=== PATIENT | male | born 1960 | race Caucasian/White ===

== ENCOUNTER 2021-02-03 11:59 | Emergency (ER) | payer OTHER, SELFPAY ==
[2021-02-03 12:05] VITALS: BP 139/81; PULSE 74; RESP 12; TEMP 36.7; O2SAT 99
--- NOTE | 2021-02-03 12:08 | DI.RAD.S_ITS ---
PROCEDURE: XR CLAVICLE RT INDICATIONS: fall w/ pain TECHNIQUE: 2 views of the clavicle were acquired. COMPARISON: [facility], CR, XR SHOULDER RT MIN 2V, 02/03/2021, 12:11. FINDINGS: Bones: There is a chronic appearing fracture seen involving the distal clavicle. No acute appearing fractures or dislocations. No suspicious bony lesions. Soft tissues: No suspicious soft tissue calcifications. The visualized lung demonstrates an unremarkable appearance. IMPRESSION: No definite, acute fractures are seen. There is a chronic appearing fracture of the right distal clavicle. Dictated by: Lamont Duarte M.D. on 02/03/2021 at 11:28 Approved by: Lamont Duarte M.D. on 02/03/2021 at 11:29
--- NOTE | 2021-02-03 12:08 | DI.RAD.S_ITS ---
PROCEDURE: XR SHOULDER RT MIN 2V INDICATIONS: fall w/ pain TECHNIQUE: 3 views of the shoulder were acquired. COMPARISON: [facility], CR, XR CLAVICLE RT, 02/03/2021, 12:11. FINDINGS: Bones: There is a remote appearing fracture of the distal clavicle, with associated degenerative changes. No acute appearing fractures or dislocations. No suspicious bony lesions. Visualized ribs appear intact. Soft tissues: No suspicious soft tissue calcifications. The visualized lung demonstrates an unremarkable appearance. IMPRESSION: No definite, acute fracture can be seen. There is a remote appearing fracture of the right distal clavicle. If there is point tenderness (or other clinical suspicion for a fracture not seen on these images) please consider a dedicated CT for further evaluation. Dictated by: Lamont Duarte M.D. on 02/03/2021 at 11:29 Approved by: Lamont Duarte M.D. on 02/03/2021 at 11:29
--- NOTE | 2021-02-03 16:53 | ED.UPPEXIN ---
HPI - Extremity Injury (Upper) <MIKHAIL Florez - Last Filed: 02/03/21 17:15> General Chief Complaint: Extremity Injury, Upper Stated Complaint: Dislocated or Broke Rt Shoulder, Fall Time Seen by Provider: 02/03/21 15:10 Source: patient Mode of arrival: Ambulatory Limitations: no limitations History of Present Illness HPI narrative: Mr. Monk is a 60-year-old male who presents to the ED for right clavicle and shoulder pain. He reports that he tripped on some sand and fell in the driveway on to his right shoulder. He was concerned about a clavicle fracture, he has mild pain with flexion and abduction. Patient denies any numbness or tingling. Patient denies hitting head or losing consciousness. He is able to move his shoulder normally with pain. Related Data Allergies Allergy/AdvReac Type Severity Reaction Status Date / Time No Known Drug Allergies Allergy Verified 02/03/21 12:08 Patient History <MIKHAIL Florez - Last Filed: 02/03/21 17:15> Social History Smoking Status: Current every day smoker Smoking Status: Current every day smoker alcohol intake frequency: 0-2 drinks per day Substance Use Type: does not use Exam <MIKHAIL Florez - Last Filed: 02/03/21 17:15> Narrative Exam Narrative: General: denies fever, chills Head/Neck: denies headache, neck pain Eyes: denies visual changes, eye pain Cardio: denies chest pain, palpitations Respiratory: denies shortness of breath, cough GI: denies abdominal pain, nausea, vomiting, or diarrhea : denies dysuria, hematuria MSK: Complains of right shoulder pain with movement, clavicle pain improved, denies muscle weakness Skin: denies rash, itching Neuro: denies numbness, tingling Initial Vital Signs Initial Vital Signs: Vital Signs Temperature 98.1 F 02/03/21 12:05 Pulse Rate 74 02/03/21 12:05 Respiratory Rate 12 02/03/21 12:05 Blood Pressure 139/81 02/03/21 12:05 Pulse Oximetry 99 02/03/21 12:05 <Pearl Hernandez DO - Last Filed: 02/04/21 08:53> Initial Vital Signs Initial Vital Signs: Vital Signs Temperature 98.1 F 02/03/21 12:05 Pulse Rate 74 02/03/21 12:05 Respiratory Rate 12 02/03/21 12:05 Blood Pressure 139/81 02/03/21 12:05 Pulse Oximetry 99 02/03/21 12:05 Course <CARLITOS FlorezP - Last Filed: 02/03/21 17:15> Orders Ordered: ED Orders 02/03/21 12:08 XR clavicle RT Stat XR shoulder RT min 2V Stat Vital Signs Vital signs: Vital Signs - 8 hr 02/03/21 12:05 Temperature 98.1 F Pulse Rate 74 Respiratory Rate 12 Blood Pressure 139/81 Pulse Oximetry 99 <Pearl Hernandez DO - Last Filed: 02/04/21 08:53> Orders Ordered: ED Orders 02/03/21 12:08 XR clavicle RT Stat XR shoulder RT min 2V Stat Vital Signs Vital signs: Vital Signs - 8 hr 02/03/21 12:05 Temperature 98.1 F Pulse Rate 74 Respiratory Rate 12 Blood Pressure 139/81 Pulse Oximetry 99 MDM - Extremity Injury (Upper) <CARLITOS FlorezP - Last Filed: 02/03/21 17:15> Imaging Data Rt Shoulder: Radiologist's Impression: PROCEDURE:? XR SHOULDER RT MIN 2V ? INDICATIONS:? fall w/ pain ? TECHNIQUE:? 3 views of the shoulder were acquired.? ? COMPARISON:? [facility], , XR CLAVICLE RT, 02/03/2021, 12:11. ? FINDINGS:? ? Bones:? There is a remote appearing fracture of the distal clavicle, with associated degenerative changes.? No acute appearing fractures or dislocations.? No suspicious bony lesions.? Visualized ribs appear intact.? ? Soft tissues:? No suspicious soft tissue calcifications.? The visualized lung demonstrates an unremarkable appearance. ? ? IMPRESSION:? No definite, acute fracture can be seen. ? There is a remote appearing fracture of the right distal clavicle. ? If there is point tenderness (or other clinical suspicion for a fracture not seen on these images) please consider a dedicated CT for further evaluation. ? ? ? Dictated by: Lamont Duarte M.D. on 02/03/2021 at 11:29 ? ? Approved by: Lamont Duarte M.D. on 02/03/2021 at 11:29 ? Rt Clavicle: Radiologist's Impression: PROCEDURE:? XR CLAVICLE RT ? INDICATIONS:? fall w/ pain ? TECHNIQUE:? 2 views of the clavicle were acquired.? ? COMPARISON:? [facility], CR, XR SHOULDER RT MIN 2V, 02/03/2021, 12:11. ? FINDINGS:? ? Bones:? There is a chronic appearing fracture seen involving the distal clavicle.? No acute appearing fractures or dislocations.? No suspicious bony lesions.? ? Soft tissues:? No suspicious soft tissue calcifications.? The visualized lung demonstrates an unremarkable appearance. ? ? IMPRESSION:? No definite, acute fractures are seen. ? There is a chronic appearing fracture of the right distal clavicle. ? ? Dictated by: Lamont Duarte M.D. on 02/03/2021 at 11:28 ? ? Approved by: Lamont Duarte M.D. on 02/03/2021 at 11:29 ? MDM Narrative Medical decision making narrative: Mr. Monk is a 60-year-old male who presents to the ED for right clavicle and shoulder pain. X-rays of both his right clavicle and his right shoulder were completed with no acute abnormalities. Evidence of prior fracture observed. Patient with pain with abduction and flexion of the right shoulder, most likely a sprain. Other less likely possibilities include rotator cuff injury and AC separation. No evidence of fracture, dislocation or neurovascular deficit. Patient is appropriate and amenable to discharge home. Vital signs are stable on repeat examination is unremarkable. Patient has been informed of results. Patient has been given strict return to ER precautions for any new or worsening symptoms. Patient understands to follow up closely with outpatient providers as instructed. Patient understands plan and agrees to discharge home. All questions and concerns answered at this time. Discharge Plan Departure Patient Disposition: Home Clinical Impression: Right shoulder pain Qualifiers: Chronicity: acute Qualified Code(s): M25.511 - Pain in right shoulder Instructions: DI for Shoulder Sprain Activity Restrictions/Additional Instructions: *You have been diagnosed with right shoulder pain. There is not an acute fracture, however, the radiologist viewed a previous old fracture of the right clavicle which has healed. *What to do: Rest, Ice as necessary, make appointment with PCP in 1-2 weeks if not improved. Take motrin or naproxen for pain, with food. *Please continue to take your regular medications as directed. [ ] New medication prescriptions sent to your pharmacy: [ ] [ ] New medication written as a paper prescription [ x] No new medications given *Please follow up with your primary care provider in 2-3 days, call for an appointment. Let them know you were seen in the Emergency Department and that we ask that you be seen in follow up. We will electronically transmit a record of today's note if your PCP is in our system *If you do not have a primary care provider please contact the [facility] Resource line at [phone]. They will ask some questions about your medical history and help get you set up with a doctor in the community. *Return to Emergency Department if you should have any new, worsening or concerning symptoms, such as [fever greater than 101F, chills, worsening pain, persistent vomiting or other bothersome symptoms] <Pearl Hernandez, DO - Last Filed: 02/04/21 08:53> Cosign ED Attending Matthewature Attestation: I was immediately available in the department for consultation. Documentation has been reviewed. I agree with assessment and plan.
== END 2021-02-03 16:24 | disposition home or self-care (01) ==
PROVIDERS: Emergency Provider Nurse Practitioner Critical Care Medicine
DX: M25.511 Pain in right shoulder (principal); W19.XXXA Unspecified fall, initial encounter
CPT/HCPCS: 73000; 73030; 99283